=== PATIENT | female | born 1960 | race Caucasian/White ===

== ENCOUNTER 2019-11-06 14:21 | Emergency (ER) | payer MEDICAID ==
[2019-11-06 14:37] VITALS: BP 140/87; PULSE 82
--- NOTE | 2019-11-07 07:47 | EDM.PDOC ---
ED HPI GENERAL MEDICAL PROBLEM - General Chief Complaint: General Stated Complaint: right arm pain due to fall Time Seen by Provider: 11/06/19 14:25 - History of Present Illness INITIAL COMMENTS - FREE TEXT/NARRATIVE: Brittany presents for FOOSH injury to the right hand. She was walking and slipped on the ice. Pain with movement of right finger. She has been struggling with painful peripheral neuropathy. Has failed multiple agents. Would be interested in trying something else. Cleans rooms for a living . Adamantly declines ortho consult and/or cast application. No tingling or loss of motor function. Denies any other injuries, including head trauma or neck pain. Right Hand Pain Score (Numeric/FACES): 7 - Related Data Allergies Allergy/AdvReac Type Severity Reaction Status Date / Time erythromycin base Allergy Cannot Verified 08/31/16 14:18 [Erythromycin Base] Remember Home Meds: Home Meds Calcium Carbonate/Vitamin D3 [Oyster Shell Calcium-Vit D Tab] 1 ea PO DAILY [History] Gabapentin 300 mg PO DAILY 09/15/14 [History] oxyCODONE HCl/Acetaminophen [oxyCODONE-Acetaminophen 5-325] 1 - 2 tab PO Q6H PRN 09/15/14 [History] Turmeric 400 mg PO DAILY 11/06/19 [History] amLODIPine [Norvasc] 5 mg PO DAILY 11/06/19 [History] Past Medical History [employer]ANT History: Reports: Other Musculoskeletal History: bad right knee Oncologic (Cancer) History: Reports: Lung Other Oncologic History: rib Social & Family History - Family History Family Medical History: Noncontributory - Tobacco Use Smoking Status *Q: Former Smoker Used Tobacco, but Quit: Yes Month/Year Tobacco Last Used: 2013 - Caffeine Use Caffeine Use: Reports: Coffee - Recreational Drug Use Recreational Drug Use: No ED ROS GENERAL - Review of Systems Review Of Systems: See Below Constitutional: Reports: No Symptoms Musculoskeletal: Reports: Hand Pain Skin: Reports: No Symptoms Neurological: Reports: No Symptoms (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) ED EXAM, GENERAL - Physical Exam Exam: See Below Exam Limited By: No Limitations General Appearance: Alert, WD/WN, No Apparent Distress Head: Atraumatic, Normocephalic Neck: Non-Tender, Full Range of Motion Respiratory/Chest: Lungs Clear Cardiovascular: Regular Rate, Rhythm Back Exam: Normal Inspection Extremities: Normal Inspection, Normal Range of Motion, Normal Capillary Refill , Other (tender along ray of 3rd metacarpal on the right) Neurological: Alert, Oriented, Normal Cognition, Normal Gait Psychiatric: Normal Affect, Normal Mood Skin Exam: Warm, Dry, Intact Course - Vital Signs Last Recorded V/S: Last Vital Signs Temp 98.0 F 11/06/19 14:31 Pulse 82 11/06/19 14:31 Resp 18 11/06/19 14:31 BP 140/87 11/06/19 14:31 Pulse Ox 97 11/06/19 14:31 - Orders/Labs/Meds Orders: Active Orders 24 hr Category Date Time Status Hand Comp Min 3V Rt [CR] Stat Exams 11/06/19 14:29 Taken Wrist Comp Min 3V Rt [CR] Stat Exams 11/06/19 14:30 Taken Ice Therapy [OM.PC] Routine Oth 11/06/19 14:29 Ordered - Radiology Interpretation Free Text/Narrative:: My independent interpretation reveals a non-displaced 3rd metacarpal fx normal finger alignment splint fashioned and distal capillary refill excellent discussed possible TCA trial and she would like to try this Gave work note encouraging time off until can perform work duties comfortably reliable to return with any problems Departure - Departure Time of Disposition: 15:25 Disposition: Home, Self-Care 01 Clinical Impression: Metacarpal bone fracture Qualifiers: Encounter type: initial encounter Metacarpal bone: third Fracture type: closed Metacarpal location: shaft Fracture alignment: nondisplaced Laterality: right Qualified Code(s): S62.352A - Nondisplaced fracture of shaft of third metacarpal bone, right hand, initial encounter for closed fracture - Discharge Information Referrals: PCP,None [Primary Care Provider] - Forms: ED Department Discharge Additional Instructions: Discharge home. Keep hand elevated higher than your heart, elevated on a pillow at night. Percocet 5/325 1-2 tablets by mouth every 4 hours as needed for pain. Naproxen 500mg tablets 1 tablet by mouth 2 times a day as needed for pain. Apply ice to right hand, rest the hand. Follow up as needed in the clinic. Call or return to the ER if you have any questions or concerns.c Sepsis Event Note - Evaluation Sepsis Screening Result: No Definite Risk - My Orders Last 24 Hours: My Active Orders 11/06/19 14:29 Hand Comp Min 3V Rt [CR] Stat Ice Therapy [OM.PC] Routine 11/06/19 14:30 Wrist Comp Min 3V Rt [CR] Stat - Assessment/Plan Last 24 Hours: My Active Orders 11/06/19 14:29 Hand Comp Min 3V Rt [CR] Stat Ice Therapy [OM.PC] Routine 11/06/19 14:30 Wrist Comp Min 3V Rt [CR] Stat
--- NOTE | 2019-11-07 17:07 | CR ---
CLINICAL DATA: FOOSH- tender 3rd ray from wrist to MCP. RIGHT HAND: There is an oblique lucency through the proximal diaphysis of the third metacarpal consistent with a nondisplaced fracture. There are osteoarthritic changes involving multiple joints. No other acute abnormalities. [id number] [facility]
--- NOTE | 2019-11-07 17:08 | CR ---
CLINICAL DATA: MARSHA RIGHT WRIST, 06 NOVEMBER 2019: There are osteoarthritic changes involving multiple joints. No acute fracture or dislocation. No lytic or blastic bone lesions. Job: [id number] [facility]
== END 2019-11-06 15:25 | disposition home or self-care (01) ==
LOC: LB.ED 14:21
DX: S62.352A Nondisplaced fracture of shaft of third metacarpal bone, right hand, initial encounter for closed fracture (principal); Z88.1 Allergy status to other antibiotic agents; Z79.899 Other long term (current) drug therapy; Z87.891 Personal history of nicotine dependence; W00.0XXA Fall on same level due to ice and snow, initial encounter
CPT/HCPCS: 29125; 73110-RT; 73130-RT; 99283-25

== ENCOUNTER 2020-07-08 10:49 | Day surgery (SDC) | payer MEDICAID ==
[~2020-07-08 10:49] MED LIST: Metoclopramide 10 MG/2 ML SDV IV PRN; Sodium Chloride 0.9% 1,000 ML IV SCH
[2020-07-08] MEDS ORDERED: Propofol 1,000 MG/100 ML SDV ONE (12:35)
[2020-07-08 13:05] VITALS: BP 143/84; PULSE 60
--- NOTE | 2020-07-08 13:17 | OR ---
DATE OF OPERATION: 07/08/2020 SURGEON: Noe Hooker MD PREOPERATIVE DIAGNOSIS: Surveillance colonoscopy. POSTOPERATIVE DIAGNOSIS: Surveillance colonoscopy. PROCEDURE: Surveillance colonoscopy. ANESTHESIA: MAC. ESTIMATED BLOOD LOSS: None. COMPLICATIONS: None. INDICATION FOR THE PROCEDURE: The patient is a 59-year-old female who last had a colonoscopy 7-8 years ago and she was supposed to have one in 5 to 10. Apparently had some polyps on the last scope. Otherwise, denies any change in bowel habits since that time. DESCRIPTION OF PROCEDURE: Informed consent was obtained from the patient. The patient was taken to the operating room and placed on table in left lateral decubitus position. Monitored anesthesia care was administered. Digital rectal exam performed and was normal. Colonoscope then advanced through the anus directed toward the cecum. Cecum was reached and identified by appendiceal orifice and ileocecal valve. Colonoscope then slowly withdrawn. No masses. No polyps. No areas of ischemia or inflammation. No AV malformations identified. No diverticula. Colonoscope then slowly withdrawn. Rectum was also otherwise unremarkable. Colonoscope then fully withdrawn. FINDINGS: Normal colonoscopy. RECOMMENDATIONS: We would recommend repeat colonoscopy in 10 years. [place]/[facility] /[id number]
== END 2020-07-08 13:55 | disposition home or self-care (01) ==
LOC: LB.SDS 10:49
PROVIDERS: ATTEND Surgery
DX: Z12.11 Encounter for screening for malignant neoplasm of colon (principal); Z86.010 Personal history of colon polyps
CPT/HCPCS: J2704; J7030

== ENCOUNTER 2024-08-14 14:33 | Emergency (ER) | payer BC ==
[2024-08-14] MEDS: Ketorolac 30 MG/ML SDV IM ONE (14:53)
[2024-08-14 16:26] VITALS: BP 151/92; PULSE 90
== END 2024-08-14 16:15 | disposition home or self-care (01) ==
LOC: LB.ED 14:33
DX: S62.001A Unspecified fracture of navicular [scaphoid] bone of right wrist, initial encounter for closed fracture (principal); I10 Essential (primary) hypertension; Z79.899 Other long term (current) drug therapy; Z88.1 Allergy status to other antibiotic agents; Z88.5 Allergy status to narcotic agent; W00.0XXA Fall on same level due to ice and snow, initial encounter
CPT/HCPCS: 73100-RT; 73140-F5; 96372; 99283; J1885

== ENCOUNTER 2024-10-29 15:24 | Emergency (ER) | payer BC, MEDICARE ==
[2024-10-29] MEDS: Nitroglycerin 0.4 MG Tab.SL SL ONE (15:30)
[2024-10-29] MEDS ORDERED: Sodium Chloride 0.9% 10 ML Syringe FLUSH PRN (15:37)
[2024-10-29] MEDS ORDERED: Naloxone 2 MG/2 ML Syringe IVPUSH PRN (15:44)
[2024-10-29] MEDS: Morphine 2 MG/ML SYRINGE IVPUSH ONE ×2 (15:48→16:53)
[2024-10-29 15:51] LABS: BASOPHILS ABSOLUTE AUTO 0.02 K/uL (0.02-0.10); BASOPHILS PERCENT AUTO 0.3 % (0.0-0.5); EOSINOPHILS ABSOLUTE AUTO 0.11 K/uL (0.04-0.40); EOSINOPHILS PERCENT AUTO 1.5 % (1.0-5.0); HEMATOCRIT 42.3 % (37.0-47.0); HEMOGLOBIN 14.2 g/dL (11.5-16.5); LYMPHOCYTES ABSOLUTE AUTO 1.43 K/uL (1.50-4.00); MEAN CORPUSCULAR HGB CONC 33.6 g/dL (31.0-35.0); MEAN CORPUSCULAR VOLUME 89 fL (76-96); MEAN PLATELET VOLUME 9.6 fL (6.0-10.0); MONOCYTES ABSOLUTE AUTO 0.58 K/uL (0.20-0.80); MONOCYTES PERCENT AUTO 7.7 % (3.0-10.0); NEUTROPHILS ABSOLUTE AUTO 5.38 K/uL (2.00-7.50); NEUTROPHILS PERCENT AUTO 71.5 % (45.0-70.0); PLATELET COUNT,PLT 250 K/uL (150-500); RED BLOOD CELL COUNT 4.73 M/uL (3.80-5.80); RED CELL DISTRIBUTION WIDTH 13.6 % (11.0-16.0); WHITE BLOOD CELL COUNT,WBC 7.5 K/uL (4.0-11.0)
[2024-10-29 16:07] LABS: A/G RATIO 0.9 (0.8-2.0); ALBUMIN 3.8 g/dL (3.4-5.0); BILIRUBIN TOTAL 0.3 mg/dL (0.0-1.0); BUN/CREATININE RATIO 22.1 (6-25); CALCIUM 10.3 mg/dL (8.5-10.1); CARBON DIOXIDE,CO2 28.4 mmol/L (21.0-32.0); CREATININE 1.13 mg/dL (0.55-1.02); EST CRCL DRUG DOSING (CG) 46.46 mL/min; POTASSIUM,K 3.4 mmol/L (3.5-5.1)
[2024-10-29 16:08] LABS: TROPONIN I HIGH SENSITIVITY 450.8 pg/ml (<=60.4)
[2024-10-29] MEDS: Nitroglycerin/D5W 25 MG/250 ML BOTTLE IV SCH (16:26)
[2024-10-29] MEDS: Heparin Sodium 5,000 Units/ML Vial IVPUSH ONE (16:28)
[2024-10-29] MEDS: Clopidogrel 75 MG Tab PO ONE (16:30)
[2024-10-29] MEDS: Heparin Sodium/D5W 25,000 UNITS/500 ML BAG IV SCH (16:34)
[2024-10-29] MEDS: Morphine 2 MG/ML SYRINGE ONE (16:55)
[2024-10-29] MEDS: hydrALAZINE 20 MG/ML SDV IVPUSH ONE (16:58)
[2024-10-29] MEDS: Ondansetron 4 MG/2 ML SDV ONE (16:58)
[2024-10-29] MEDS: hydrALAZINE 20 MG/ML SDV ONE (17:02)
[2024-10-29 17:04] LABS: APPEARANCE,URINE CLEAR (CLEAR); COLOR,URINE OTHER; GLUCOSE,URINE NEGATIVE (NEGATIVE); PH,URINE 6.5 (5.0-8.0); PROTEIN,URINE NEGATIVE (NEGATIVE)
[2024-10-29] MEDS: Labetalol 100 MG/20 ML MDV IVPUSH ONE (17:04)
[2024-10-29 17:05] LABS: BILIRUBIN,URINE NEGATIVE (NEGATIVE); KETONES,URINE NEGATIVE (NEGATIVE); LEUKOCYTE ESTERASE,URINE NEGATIVE (NEGATIVE); NITRITE,URINE NEGATIVE (NEGATIVE); OCCULT BLOOD,URINE SMALL (NEGATIVE); RBC,URINE 0-5 /HPF; UROBILINOGEN,URINE 0.2 E.U./dL (0.2-1.0); WBC,URINE NOT SEEN /HPF
[2024-10-29 18:29] VITALS: BP 146/90; PULSE 88
[2024-10-29] MEDS: Labetalol 100 MG/20 ML MDV ONE (18:42)
== END 2024-10-29 17:45 ==
LOC: LB.ED 15:24
DX: I21.3 ST elevation (STEMI) myocardial infarction of unspecified site (principal); I10 Essential (primary) hypertension; Z88.5 Allergy status to narcotic agent; Z88.1 Allergy status to other antibiotic agents; Z79.899 Other long term (current) drug therapy
CPT/HCPCS: 36415; 71045; 80053; 81001; 84484; 85025; 85730; 93005; 93010; 96365; 96368; 96375; 96376; 99285-25; A0425; A0428; A9270-GY; J0360; J1644; J1920; J2270; J2305

== ENCOUNTER 2025-03-09 10:07 | Emergency (ER) | payer MEDICARE ==
[2025-03-09] MEDS ORDERED: Sodium Chloride 0.9% 10 ML Syringe FLUSH PRN (10:21)
[2025-03-09 10:34] LABS: BASOPHILS ABSOLUTE AUTO 0.03 K/uL (0.02-0.10); BASOPHILS PERCENT AUTO 0.6 % (0.0-0.5); EOSINOPHILS ABSOLUTE AUTO 0.15 K/uL (0.04-0.40); EOSINOPHILS PERCENT AUTO 3.1 % (1.0-5.0); HEMATOCRIT 43.6 % (37.0-47.0); HEMOGLOBIN 14.6 g/dL (11.5-16.5); LYMPHOCYTES ABSOLUTE AUTO 0.99 K/uL (1.50-4.00); LYMPHOCYTES PERCENT AUTO 20.6 % (20.0-40.0); MEAN CORPUSCULAR HEMOGLOBIN 30.2 pg (27.0-32.0); MEAN CORPUSCULAR HGB CONC 33.5 g/dL (31.0-35.0); MEAN CORPUSCULAR VOLUME 90 fL (76-96); MEAN PLATELET VOLUME 9.5 fL (6.0-10.0); MONOCYTES ABSOLUTE AUTO 0.39 K/uL (0.20-0.80); MONOCYTES PERCENT AUTO 8.1 % (3.0-10.0); NEUTROPHILS ABSOLUTE AUTO 3.25 K/uL (2.00-7.50); NEUTROPHILS PERCENT AUTO 67.6 % (45.0-70.0); PLATELET COUNT,PLT 220 K/uL (150-500); RED BLOOD CELL COUNT 4.83 M/uL (3.80-5.80); RED CELL DISTRIBUTION WIDTH 13.8 % (11.0-16.0); WHITE BLOOD CELL COUNT,WBC 4.8 K/uL (4.0-11.0)
[2025-03-09] MEDS: Nitroglycerin 0.4 MG Tab.SL SL ONE (10:42)
[2025-03-09 10:56] LABS: ANION GAP 14.2 mmol/L (5.0-15.0); BUN/CREATININE RATIO 23.8 (6-25); CALCIUM 9.9 mg/dL (8.5-10.1); CREATININE 0.84 mg/dL (0.55-1.02); EST CRCL DRUG DOSING (CG) 62.51 mL/min; POTASSIUM,K 4.2 mmol/L (3.5-5.1); TROPONIN I HIGH SENSITIVITY 11.4 pg/ml (<=60.4)
[2025-03-09] MEDS: Isosorbide Mononitrate 30 MG Tab.ER PO SCH (11:08)
[2025-03-09] MEDS: Aspirin 325 MG Tab.EC PO ONE (13:13)
[2025-03-09] MEDS: Aluminum Hydroxide/Magnesium Hydroxide/Simethicone Susp 30 ML Cup PO ONE (15:26)
[2025-03-09 15:43] VITALS: BP 131/81; PULSE 71
== END 2025-03-09 15:50 | disposition home or self-care (01) ==
LOC: LB.ED 10:07
DX: I51.89 Other ill-defined heart diseases (principal); I20.9 Angina pectoris, unspecified; I10 Essential (primary) hypertension; E66.9 Obesity, unspecified; Z88.5 Allergy status to narcotic agent; Z88.8 Allergy status to other drugs, medicaments and biological substances; Z79.899 Other long term (current) drug therapy; Z79.82 Long term (current) use of aspirin
CPT/HCPCS: 36415; 80048; 84484; 85025; 93005; 99285; A9270; 93010; 99284